=== PATIENT | male | born 1955 ===

== ENCOUNTER 2025-06-13 14:16 | Inpatient (IN) | payer MEDICARE, OTHER ==
[~2025-06-13] VITALS: Ht 182.9 cm; Wt 65.1 kg
[2025-06-13] MEDS ORDERED: UNK INSULIN SQ (15:13)
[2025-06-13 15:39] LABS: PLATELET COUNT (AUTO) 217 K/uL (150-450); RED BLOOD CELL COUNT(AUTO) 3.86 MIL/uL (4.50-5.90); RED CELL DISTRIBUTION WIDTH 13.9 % (11.5-14.5); WHITE BLOOD COUNT (AUTO) 4.8 K/uL (4.5-11.0)
[2025-06-13 15:57] LABS: CALCIUM, TOTAL 8.4 mg/dL (8.8-10.5); CREATININE 4.72 mg/dL (0.60-1.30); GLOMERULAR FILTR. RATE CALC 12 mL/min (>60); GLUCOSE,RANDOM 93 mg/dL (70-110); SODIUM SERUM 136 mmol/L (136-145); TROPONIN I-HIGH SENSITIVITY 18 ng/L (<76); UREA NITROGEN, BLOOD 25 mg/dL (7-18)
[2025-06-13] MEDS ORDERED: ZOLPIDEM TARTRATE 5 MG TABLET PO PRN (16:00)
[2025-06-13] MEDS ORDERED: MAGNESIUM HYDROXIDE SUSPENSION 30 ML UDCUP PO PRN (16:00)
[2025-06-13] MEDS ORDERED: ACETAMINOPHEN 325 MG TABLET PO PRN (16:00)
[2025-06-13] MEDS ORDERED: DEXTROSE 50%-WATER 25 GM/50 ML SYRINGE IVP PRN (16:00)
[2025-06-13] MEDS ORDERED: ONDANSETRON HCL 4 MG/2 ML VIAL IVP PRN (16:00)
[2025-06-13 16:02] LABS: ASPARTATE AMINOTRANSFERASE 33.0 U/L (15-37); TOTAL PROTEIN, SERUM 8.4 g/dL (6.4-8.2)
[2025-06-13] MEDS: HEPARIN SODIUM,PORCINE 5,000 UNITS/ML VIAL SQ SCH (16:35)
[2025-06-13] MEDS: SODIUM CHLORIDE 0.9% 1,000 ML IV SCH (16:36)
[2025-06-13 20:00] VITALS: BP 153/80; PULSE 79; RESP 18; TEMP 98.2; O2SAT 100
[2025-06-13] MEDS: DOCUSATE SODIUM 100 MG CAPSULE PO SCH (20:02)
[2025-06-13] MEDS: INSULIN LISPRO 100 UNITS/ML SQ PRN (20:15)
[2025-06-14 00:06] LABS: GLUCOMETER DEV NAME(LOC) 6N.2C; GLUCOSE,POINT OF CARE 203 MG/DL (70-110)
[2025-06-14 04:00] VITALS: BP 140/75; PULSE 65; RESP 18; TEMP 98.4; O2SAT 100
[2025-06-14 07:20] LABS: CALCIUM, TOTAL 8.0 mg/dL (8.8-10.5); CREATININE 4.91 mg/dL (0.60-1.30); GLOMERULAR FILTR. RATE CALC 12.0 mL/min (>60); GLUCOSE,RANDOM 87.0 mg/dL (70-110); SODIUM SERUM 137.0 mmol/L (136-145); UREA NITROGEN, BLOOD 30.0 mg/dL (7-18)
[2025-06-14 07:48] LABS: APPEARANCE,URINE TURBID (CLEAR); GLUCOSE, URINE (UA) NEGATIVE (NEGATIVE); LEUKOCYTE ESTERASE ,URINE LARGE (NEGATIVE); NITRATE,URINE NEGATIVE (NEGATIVE); OCCULT BLOOD,URINE SMALL (NEGATIVE); SPECIFIC GRAVITIY, URINE 1.012 (1.003-1.030)
[2025-06-14 08:01] LABS: SULFOSALICYLIC ACID,URINE 3+ (Negative)
[2025-06-14] MEDS: FAMOTIDINE 20 MG TABLET PO SCH (08:23)
[2025-06-14 08:45] VITALS: BP 195/93; PULSE 79; RESP 18; TEMP 97.7; O2SAT 98
[2025-06-14] MEDS: POTASSIUM CHLORIDE 8 MEQ ER TABLET PO ONE (09:47)
[2025-06-14 11:01] VITALS: BP 150/85; PULSE 67
[2025-06-14] MEDS: FOLIC ACID/VIT B COMPLEX AND C TABLET PO SCH (11:56)
[2025-06-14] MEDS: POTASSIUM CHLORIDE 20 MEQ ER TABLET PO ONE (11:56)
[2025-06-14 12:26] LABS: GLUCOMETER DEV NAME(LOC) 6N.2C; GLUCOSE,POINT OF CARE 75 MG/DL (70-110)
[2025-06-14 12:26] LABS: GLUCOMETER DEV NAME(LOC) 6N.2C; GLUCOSE,POINT OF CARE 159 MG/DL (70-110)
[2025-06-14 12:47] LABS: PH,URINE DRUG SCREEN 7.5 (5.0-8.0)
[2025-06-14 12:53] LABS: ALCOHOL, URINE DRUG SCREEN NEGATIVE (NEGATIVE); AMPHET/METH SCREEN,URINE NEGATIVE (NEGATIVE); BARBITURATE SCREEN, URINE NEGATIVE (NEGATIVE); CANNABINOID SCREEN,URINE POSITIVE (NEGATIVE); COCAINE SCREEN,URINE NEGATIVE (NEGATIVE); METHADONE SCREEN, URINE NEGATIVE (NEGATIVE)
[2025-06-14 15:56] VITALS: BP 154/92; PULSE 73; RESP 19; TEMP 97.8; O2SAT 98
[2025-06-14 21:20] LABS: GLUCOMETER DEV NAME(LOC) 6N.2C; GLUCOSE,POINT OF CARE 73 MG/DL (70-110)
[2025-06-14 21:20] LABS: GLUCOMETER DEV NAME(LOC) 6N.2C; GLUCOSE,POINT OF CARE 157 MG/DL (70-110)
[2025-06-14 23:20] VITALS: BP 126/76; PULSE 71; RESP 20; TEMP 97.7; O2SAT 100
[2025-06-15] VITALS (12 sets, daily range): BP systolic 108–147; BP diastolic 53–77; PULSE 61–90; RESP 18; TEMP 97.4–99; O2SAT 97–100
[2025-06-15 06:10] LABS: GLUCOMETER DEV NAME(LOC) 6N.2C; GLUCOSE,POINT OF CARE 114 MG/DL (70-110)
[2025-06-15] MEDS ORDERED: SODIUM CHLORIDE 0.9% 1,000 ML ONE ×2 (07:37)
[2025-06-15 08:16] LABS: CALCIUM, TOTAL 7.8 mg/dL (8.8-10.5); CREATININE 5.09 mg/dL (0.60-1.30); GLOMERULAR FILTR. RATE CALC 11.0 mL/min (>60); GLUCOSE,RANDOM 100.0 mg/dL (70-110); SODIUM SERUM 135.0 mmol/L (136-145); UREA NITROGEN, BLOOD 33.0 mg/dL (7-18)
[2025-06-15] MEDS ORDERED: AMLO-258 PO (09:42)
[2025-06-15 16:46] LABS: GLUCOMETER DEV NAME(LOC) 6N.2C; GLUCOSE,POINT OF CARE 108 MG/DL (70-110)
[2025-06-15 18:25] LABS: GLUCOMETER DEV NAME(LOC) 6N.2C; GLUCOSE,POINT OF CARE 125 MG/DL (70-110)
[2025-06-15 21:26] LABS: GLUCOMETER DEV NAME(LOC) 6N.2C; GLUCOSE,POINT OF CARE 189 MG/DL (70-110)
[2025-06-16 04:24] VITALS: BP 145/65; PULSE 64; RESP 18; TEMP 97.7; O2SAT 100
[2025-06-16 05:41] LABS: GLUCOMETER DEV NAME(LOC) 6N.2C; GLUCOSE,POINT OF CARE 88 MG/DL (70-110)
[2025-06-16 08:00] VITALS: BP 152/83; PULSE 67; RESP 20; TEMP 98.4; O2SAT 100
[2025-06-16 12:05] LABS: GLUCOMETER DEV NAME(LOC) 6N.2C; GLUCOSE,POINT OF CARE 186 MG/DL (70-110)
[2025-06-16 16:00] VITALS: BP 153/76; PULSE 69; RESP 20; TEMP 98.8; O2SAT 99
[2025-06-16 19:41] LABS: GLUCOMETER DEV NAME(LOC) 6N.2C; GLUCOSE,POINT OF CARE 151 MG/DL (70-110)
[2025-06-16 20:45] LABS: GLUCOMETER DEV NAME(LOC) 6N.2C; GLUCOSE,POINT OF CARE 96 MG/DL (70-110)
[2025-06-16 21:08] VITALS: BP 127/69; PULSE 68; RESP 18; TEMP 99; O2SAT 100
[2025-06-17 05:00] VITALS: BP 153/66; PULSE 68; RESP 18; TEMP 98.1; O2SAT 99
[2025-06-17 06:40] LABS: GLUCOMETER DEV NAME(LOC) 6N.2C; GLUCOSE,POINT OF CARE 114 MG/DL (70-110)
[2025-06-17 08:00] VITALS: BP 156/83; PULSE 70; RESP 18; TEMP 98.2; O2SAT 100
[2025-06-17 13:31] LABS: GLUCOMETER DEV NAME(LOC) 6N.2C; GLUCOSE,POINT OF CARE 162 MG/DL (70-110)
[2025-06-17 16:00] VITALS: BP 137/70; PULSE 67; RESP 17; TEMP 97.9; O2SAT 100
[2025-06-17 18:15] LABS: GLUCOMETER DEV NAME(LOC) 6N.2C; GLUCOSE,POINT OF CARE 179 MG/DL (70-110)
[2025-06-17 20:00] VITALS: BP 138/81; PULSE 70; RESP 18; TEMP 97.9; O2SAT 99
[2025-06-18] VITALS (12 sets, daily range): BP systolic 120–170; BP diastolic 62–91; PULSE 59–74; RESP 18; TEMP 97.2–98.2; O2SAT 97–100
[2025-06-18 02:50] LABS: GLUCOMETER DEV NAME(LOC) 6N.2C; GLUCOSE,POINT OF CARE 80 MG/DL (70-110)
[2025-06-18 06:16] LABS: GLUCOMETER DEV NAME(LOC) 6N.2C; GLUCOSE,POINT OF CARE 89 MG/DL (70-110)
[2025-06-18 12:40] LABS: GLUCOMETER DEV NAME(LOC) 6N.2C; GLUCOSE,POINT OF CARE 169 MG/DL (70-110)
[2025-06-18] MEDS ORDERED: SODIUM CHLORIDE 0.9% 2,000 ML ONE (13:31)
== END 2025-06-18 21:50 | disposition home or self-care (01) | DRG 682 ==
LOC: EMS 14:16 → EDH 15:56 → 6S 18:30
PROVIDERS: ADMIT Internal Medicine; ATTEND Internal Medicine
PROC: 5A1D70Z Performance of Urinary Filtration, Intermittent, Less than 6 Hours Per Day (ICD-10-PCS; principal; 2025-06-18)
PROC: 5A1D70Z Performance of Urinary Filtration, Intermittent, Less than 6 Hours Per Day (ICD-10-PCS; 2025-06-18)
DX: N17.9 Acute kidney failure, unspecified (principal); G93.41 Metabolic encephalopathy; I12.0 Hypertensive chronic kidney disease with stage 5 chronic kidney disease or end stage renal disease; R62.7 Adult failure to thrive; D63.8 Anemia in other chronic diseases classified elsewhere; N18.6 End stage renal disease; E11.22 Type 2 diabetes mellitus with diabetic chronic kidney disease; Z68.1 Body mass index [BMI] 19.9 or less, adult; D64.9 Anemia, unspecified; E11.51 Type 2 diabetes mellitus with diabetic peripheral angiopathy without gangrene; E11.9 Type 2 diabetes mellitus without complications; E87.6 Hypokalemia; N32.89 Other specified disorders of bladder; R53.1 Weakness; Z83.3 Family history of diabetes mellitus; Z93.3 Colostomy status
CPT/HCPCS: 71045; 76770; 80048; 80076; 80307; 81001; 81002; 82962; 83880; 83970; 84100; 84443; 84484; 85025; 87081; 87086; 87340; 87389; 90935; 93005; 97163; 99285; J1644; J7030; 36415-L1; 36415-TC